=== PATIENT | female | born 1955 | race Caucasian/White ===

== ENCOUNTER 2018-11-25 09:04 | Day surgery (SDC) | payer MEDICARE, OTHER ==
[~2018-11-25] VITALS: Ht 170.2 cm; Wt 65.9 kg
[~2018-11-25 09:04] MED LIST: ALBU8.5H8 IH; BECL10.62 IH; CYCL10 PO; ENAL10TA2 PO; GABA-533 PO; HYDR-4455 PO; LORA10TA7 PO; PANT40TA25 PO; SODIUM CHLORIDE 0.9% 1,000 ML IV ONE; VENL-68 PO
[2018-11-25] MEDS ORDERED: PROPOFOL 1% 20 ML VIAL IVP ONE (09:05)
== END 2018-11-25 11:20 | disposition home or self-care (01) ==
LOC: SURGERY 09:04
PROVIDERS: ATTEND Internal Medicine Gastroenterology
DX: R13.10 Dysphagia, unspecified (principal); K21.0 Gastro-esophageal reflux disease with esophagitis; K22.10 Ulcer of esophagus without bleeding; K44.9 Diaphragmatic hernia without obstruction or gangrene; G89.4 Chronic pain syndrome; M19.90 Unspecified osteoarthritis, unspecified site; D64.9 Anemia, unspecified; I10 Essential (primary) hypertension; J44.9 Chronic obstructive pulmonary disease, unspecified; F32.9 Major depressive disorder, single episode, unspecified; F12.90 Cannabis use, unspecified, uncomplicated; Z88.0 Allergy status to penicillin; Z88.8 Allergy status to other drugs, medicaments and biological substances; Z79.899 Other long term (current) drug therapy; Z98.890 Other specified postprocedural states
CPT/HCPCS: 43239; 88305; 88312; C1769; J2704; J7030; 78452